=== PATIENT | male | born 1985 | race Caucasian/White ===

== ENCOUNTER 2019-06-10 14:36 | Emergency (ER) | payer OTHER, SELFPAY ==
[2019-06-10 14:46] VITALS: BP 133/79; PULSE 78; RESP 18; TEMP 37.4; O2SAT 100
--- NOTE | 2019-06-10 15:16 | ED.GENADULT ---
HPI - General Adult General Chief complaint: Upper Respiratory Infection Stated complaint: Congestion Time Seen by Provider: 06/10/19 15:16 Source: patient Mode of arrival: ambulatory Limitations: no limitations History of Present Illness HPI narrative: 34-year-old male patient presents to the [facility] with complaints of cold symptoms that started about 2 to 3 days ago. Patient states he has been feeling very weak, tired. Unknown if he has been having fevers. Patient states he has had a lot of cough, nasal drainage, congestion. Patient states he has been taking [id number] cold and sinus medication. Patient denies getting a flu shot this year. Patient denies any chest pain, shortness breath, abdominal pain, nausea, vomiting or diarrhea. Related Data Allergies Allergy/AdvReac Type Severity Reaction Status Date / Time No Known Allergies Allergy Verified 06/10/19 14:51 Review of Systems Review of Systems: Narrative: CONSTITUTIONAL: Positive subjective fever, chills, body exam sweats. EYES: Denies visual changes, redness, or discharge. ENT: Positive rhinorrhea, congestion, denies sore throat, or otalgia. CARDIOVASCULAR: Denies chest pain, palpitations, or edema. RESPIRATORY: Positive cough or dyspnea. GASTROINTESTINAL: Denies abdominal pain, nausea, vomiting, or diarrhea. GENITOURINARY: Denies dysuria or hematuria. SKIN: Denies rash or itching. MUSCULOSKELETAL: Denies back pain, joint pain, or myalgia. NEUROLOGIC: Denies headache, numbness, or weakness. PSYCHIATRIC: Denies anxiety or depression. [facility] Past Medical History Medical History Anxiety Social History Social History Smoking status: Current some day smoker Tobacco type: cigarettes Alcohol intake: current Substance use: never Gender identity (if verbalized by the patient): Male Comments At the time of my signature I agree with nursing past medical history, surgical, social, and family history. There is no relevant family history pertinent to the presenting complaint. Exam Narrative: Exam Narrative: GENERAL: ill-appearing, well-nourished, and in no acute distress. HEAD: Normocephalic, atraumatic. No tenderness noted to frontal maxillary sinuses on palpation EYES: PERRLA and EOMI. ENT: Nares with erythema and edema noted bilaterally, no rhinorrhea or epistaxis. Mucous membranes moist. Posterior pharynx with no erythema, tonsillar margin, exudates or lesions present. Bilateral TMs are clear with no erythema or foreign bodies in the canal. NECK: Supple. No lymphadenopathy CHEST: Clear to auscultation. No respiratory distress. HEART: Regular rate and rhythm. No murmur heard. Normal peripheral pulses. ABDOMEN: Soft, nontender, nondistended, normal active bowel sounds. EXTREMITIES: Normal range of motion. No edema. SKIN: Warm, dry, no rash. NEURO: No focal deficits. Alert and oriented x3. Course Vital Signs Vital signs: Vital Signs Temperature 37.4 C 06/10/19 14:46 Pulse Rate 78 06/10/19 14:46 Respiratory Rate 18 06/10/19 14:46 Blood Pressure 133/79 06/10/19 14:46 Pulse Oximetry 100 06/10/19 14:46 Temperature 37.4 C 06/10/19 14:46 Pulse Rate 78 06/10/19 14:46 Respiratory Rate 18 06/10/19 14:46 Blood Pressure 133/79 06/10/19 14:46 Pulse Oximetry 100 06/10/19 14:46 Vital signs reviewed. Medical Decision Making Differential Diagnosis Differential Diagnosis: Differential diagnosis: Allergic rhinitis, chronic sinusitis, tonsillitis, acute sinusitis, infectious mononucleosis, seasonal influenza, pertussis, diphtheria, meningococcal disease, viral syndrome, viral bronchitis, RSV. Discussed with patient today that his influenza test is negative however given his symptoms I do think he most likely does have influenza. Discussed with patient that the treatment is good to be [id number] Tylenol, Motrin
== END 2019-06-10 15:30 | disposition home or self-care (01) ==
PROVIDERS: Emergency Provider Nurse Practitioner Family; PCP Family Medicine
DX: J06.9 Acute upper respiratory infection, unspecified (principal); R05 Cough; F17.210 Nicotine dependence, cigarettes, uncomplicated
CPT/HCPCS: 87804; 99212; G0463

== ENCOUNTER 2019-06-17 15:58 | Emergency (ER) | payer OTHER, SELFPAY ==
--- NOTE | 2019-06-17 16:04 | ED.GENADULT ---
HPI - General Adult General Chief complaint: Upper Respiratory Infection Stated complaint: runny nose/cough/headache Time Seen by Provider: 06/17/19 16:27 Source: patient Mode of arrival: ambulatory Limitations: no limitations History of Present Illness HPI narrative: 34-year-old male patient presents to the [facility] with complaints of cold symptoms and a cough. Patient was seen here last week and had a flu swab done however this provider was confident that he probably did have the flu. Patient was taken off work for 7 days. Patient returns stating he has taken some [id number] medicine and that his fevers have gotten better but continues to have a cough does complain of shortness of breath at times. Patient has continued to smoke throughout his illness. Did not get a flu shot this year. Related Data Allergies Allergy/AdvReac Type Severity Reaction Status Date / Time No Known Allergies Allergy Verified 06/17/19 16:19 Review of Systems Review of Systems: Narrative: CONSTITUTIONAL: Denies fever, chills, or sweats. EYES: Denies visual changes, redness, or discharge. ENT: Denies rhinorrhea, congestion, sore throat, or otalgia. CARDIOVASCULAR: Denies chest pain, palpitations, or edema. RESPIRATORY: Positive cough with dyspnea. GASTROINTESTINAL: Denies abdominal pain, nausea, vomiting, or diarrhea. GENITOURINARY: Denies dysuria or hematuria. SKIN: Denies rash or itching. MUSCULOSKELETAL: Denies back pain, joint pain, or myalgia. NEUROLOGIC: Denies headache, numbness, or weakness. PSYCHIATRIC: Denies anxiety or depression. PMFSH Social History Social History Smoking status: Current some day smoker Tobacco type: cigarettes Alcohol intake: current Substance use: never Gender identity (if verbalized by the patient): Male Comments At the time of my signature I agree with nursing past medical history, surgical, social, and family history. There is no relevant family history pertinent to the presenting complaint. Exam Narrative: Exam Narrative: GENERAL: Well-appearing, well-nourished, and in no acute distress. HEAD: Normocephalic, atraumatic. EYES: PERRLA and EOMI. ENT: Nares clear, no rhinorrhea or epistaxis. Mucous membranes moist. Posterior pharynx with no erythema, tonsillar margin, exudates or lesions present. Bilateral TMs are clear with no erythema or foreign bodies in the canal. NECK: Supple. No lymphadenopathy CHEST: Patient does have some rhonchi and some expiratory wheezing noted to bilateral upper lower lobes on auscultation. No respiratory distress. Patient able to talk in clear complete sentences. No tripoding noted. HEART: Regular rate and rhythm. No murmur heard. Normal peripheral pulses. ABDOMEN: Soft, nontender, nondistended, normal active bowel sounds. EXTREMITIES: Normal range of motion. No edema. SKIN: Warm, dry, no rash. NEURO: No focal deficits. Alert and oriented x3. Course Reevaluation(s) Reevaluation #1: Reevaluated patient after his DuoNeb was completed. Patient states he is feeling better feels like he can take a bigger deeper breath after receiving the DuoNeb. Patient still has very slight inspiratory wheezing noted to bilateral lower lobes as well as the right upper lobe. There is no more rhonchi noted. Patient overall does sound improved. Discussed with patient the fact that he is not running any more fevers is reassuring. Discussed with patient most likely this is a bronchitis that he is obtaining from the virus that he had. Discussed with patient our plan of care is to discharge him home with an albuterol inhaler and oral steroids. I will give him 1 more day off of work to see how he feels and then he can go back to work on Thursday. Patient verbalized understanding denies any other questions or concerns at this time. Date: 06/17/19 Time: 17:09 Vital Signs Vital signs: Vital Signs Temperature 36.4 C 06/17/19 16:08 Pulse
[2019-06-17 16:08] VITALS: BP 111/76; PULSE 64; RESP 18; TEMP 36.4; O2SAT 100
[2019-06-17] MEDS: ALBUTEROL SULFATE NEB 2.5 MG/3 ML INH INHALATION (16:40)
[2019-06-17] MEDS: IPRATROPIUM BR 0.02% INH SOLN 0.5 MG/2.5 ML VIAL INHALATION (16:40)
== END 2019-06-17 17:18 | disposition home or self-care (01) ==
PROVIDERS: Emergency Provider Nurse Practitioner Family; PCP Family Medicine
DX: J20.9 Acute bronchitis, unspecified (principal); F17.210 Nicotine dependence, cigarettes, uncomplicated
CPT/HCPCS: 94640; 99213; G0463

== ENCOUNTER 2019-11-13 11:13 | Emergency (ER) | payer OTHER, SELFPAY ==
--- NOTE | ~2019-11-13 | XR_ITS ---
EXAMINATION: XR thoracic spine min 4V EXAM DATE: 11/13/2019 11:46 INDICATION: Initial encounter following injury, with pain of the thoracic spine. TECHNIQUE: Frontal and lateral projections of the thoracic spine as well as lateral swimmers projecti on of the upper thoracic spine for interpretation. There is no prior study for comparison. FINDINGS: The vertebral bodies are aligned in the AP dimension. Vertebral body and disc heights are well-maintained. There are no acute fractures identified. Paraspinal soft tissue is unremarkable. IMPRESSION: Unremarkable thoracic exam. Reviewed, dictated and finalized at location A. IMPRESSION: Unremarkable thoracic exam.
--- NOTE | ~2019-11-13 | CT_ITS ---
EXAMINATION: CT brain wo con, CT cervical spine wo con EXAM DATE: 11/13/2019 11:56 INDICATION: Head injury. TECHNIQUE: Spiral CT of the head was performed without contrast. Axial, coronal and sagittal images were reviewed. Spiral CT of the cervical spine was performed without contrast. Axial images were rev iewed. Coronal and sagittal reformatted images were also reviewed. The dose-length product (DLP) fo r this examination was 605.33 (accession [id number]), 401.45 (accession [id number]) mGy-cm. The exposure was tailored according to patient size, and iterative reconstruction (ASIR) was used as additional dose reduction technique. There is no prior study for comparison. No FINDINGS: HEAD CT: There is no acute intraparenchymal hemorrhage. No evidence of intraparenchymal brain mass l esion. No evidence of acute infarction. There is no mass effect or midline shift. There is no obstru ctive hydrocephalus suspected. There are no extra-axial collections. There are no acute calvarial f ractures. The orbits are unremarkable. Soft tissue is unremarkable. The visualized sinuses and mas toid air cells are well aerated. CERVICAL CT: There is no evidence of acute cervical fracture. The odontoid process is intact. Pre- dens space is normal. Prevertebral soft tissue is normal. There are no soft tissue abnormalities id entified. There is no disc space widening or traumatic vertebral body subluxation suspected. Verteb ral body and disc heights are well-maintained. A detailed level by level evaluation of spondylosis can be added as addendum if requested. IMPRESSION: 1. No acute intracranial findings or cervical fracture. Reviewed, dictated and finalized at location A. IMPRESSION: 1. No acute intracranial findings or cervical fracture.
--- NOTE | ~2019-11-13 | XR_ITS ---
EXAMINATION: XR foot LT min 3V EXAM DATE: 11/13/2019 11:45 INDICATION: Initial encounter following injury, with pain of the left foot, toe, nail biting his blee ding. TECHNIQUE: Left foot dorsoplantar, lateral and oblique projections obtained and reviewed. There is n o prior study for comparison. FINDINGS: Left metatarsal bones unremarkable. There are no acute fractures or dislocations identifi ed. There is no subcutaneous gas. The soft tissue is unremarkable. There are no radiopaque foreig n bodies. IMPRESSION: 1. Unremarkable left foot exam. Reviewed, dictated and finalized at location A.
[2019-11-13 11:31] VITALS: BP 137/80; PULSE 75; RESP 18; TEMP 36.9; O2SAT 100
--- NOTE | 2019-11-13 12:37 | ED.HEATRA ---
HPI - Head Injury General Chief complaint: Head Injury Stated complaint: head injury Time Seen by Provider: 11/13/19 11:20 Source: patient Mode of arrival: ambulatory Limitations: no limitations History of Present Illness HPI Narrative: Patient presents for chief complaint of headache, neck, mid back, left toe after having an incident at work where he states claims multiple sheets of glass hit him in the frontal right aspect of his head pushing him back and causing him to hit the posterior right side of his head on a box. Patient states he also hit his thoracic area coming down as well as his left great toe. Patient denies any loss of consciousness. Patient states he had a moment of nausea. Patient states he is continued to have some headache and a clicking sensation in his right ear. Patient denies acute changes to vision, bleeding from any of his orifices or any other symptoms. Related Data Allergies Allergy/AdvReac Type Severity Reaction Status Date / Time No Known Allergies Allergy Verified 11/13/19 12:35 Review of Systems Review of Systems: Narrative: CONSTITUTIONAL: Denies fever, chills, or sweats. EYES: Denies visual changes, redness, or discharge. ENT: Reports clicking sensation to right ear denies rhinorrhea, congestion, sore throat CARDIOVASCULAR: Denies chest pain, palpitations, or edema. RESPIRATORY: Denies cough or dyspnea. GASTROINTESTINAL: Denies abdominal pain, nausea, vomiting, or diarrhea. GENITOURINARY: Denies dysuria or hematuria. SKIN: Denies rash or itching. MUSCULOSKELETAL: Reports back pain, left great toe pain denies joint pain, or myalgia. NEUROLOGIC: Reports headache, denies numbness, dizziness, or weakness. PSYCHIATRIC: Denies anxiety or depression. [facility] Social History Social History Smoking status: Current some day smoker Tobacco type: cigarettes Alcohol intake: current Substance use: never Gender identity (if verbalized by the patient): Male Exam Narrative: Exam Narrative: GENERAL: Well-appearing, well-nourished, and in no acute distress. HEAD: Mild swelling to the posterior aspect of head. No abrasions noted or lacerations. No scalp divet palpated. EYES: PERRLA and EOMI. ENT: Nares clear, no rhinorrhea or epistaxis. Mucous membranes moist. Oropharynx without tonsillar hypertrophy exudate or other lesions. Bilateral TMs pearly waller clear serious fluid noted behind right TM with mild bulging NECK: Supple. No adenopathy or masses. Mild tenderness to right aspect of neck. Patient was not in C collar when I entered the room and was moving neck prior to ccollar placement w/o issue. CHEST: Clear to auscultation. No respiratory distress. No wheezes rales or rhonchi HEART: Regular rate and rhythm. Normal peripheral pulses. ABDOMEN: Soft, nontender, nondistended. BACK: No outward signs of trauma. No abrasions or erythema noted. Range of motion intact. Tenderness to palpation to lateral aspect of right thoracic area diffusely. EXTREMITIES: Normal range of motion. Swelling to the lateral aspect of left nail bed with minimal bleeding. SKIN: Warm, dry, no rash. NEURO: No focal deficits. Alert and oriented x3. PSYCH: Normal mood and affect. Course Vital Signs Vital signs: Vital Signs Temperature 98.5 F 11/13/19 11:31 Pulse Rate 75 11/13/19 11:31 Respiratory Rate 18 11/13/19 11:31 Blood Pressure 137/80 11/13/19 11:31 Pulse Oximetry 100 11/13/19 11:31 Temperature 98.2 F 11/13/19 13:12 Pulse Rate 56 L 11/13/19 13:12 Respiratory Rate 18 11/13/19 13:12 Blood Pressure 136/101 H 11/13/19 13:12 Pulse Oximetry 100 11/13/19 13:12 MDM - Head Injury MDM Narrative Medical decision making narrative: Patient has noted improvement in head discomfort without medicinal intervention. Patient is not having any neurological deficits. Patient's imaging is negative. Patient encouraged to rest take Tylenol or Motrin f
[2019-11-13 13:12] VITALS: BP 136/101; PULSE 56; RESP 18; TEMP 36.8; O2SAT 100
== END 2019-11-13 13:14 | disposition home or self-care (01) ==
PROVIDERS: Emergency Provider Emergency Medicine; PCP Family Medicine
DX: S09.90XA Unspecified injury of head, initial encounter (principal); S20.222A Contusion of left back wall of thorax, initial encounter; S90.935A Unspecified superficial injury of left lesser toe(s), initial encounter; W20.8XXA Other cause of strike by thrown, projected or falling object, initial encounter
CPT/HCPCS: 70450; 72074; 72125; 73630; 99284; L0140

== ENCOUNTER 2022-04-09 19:27 | Emergency (ER) | payer OTHER, SELFPAY ==
--- NOTE | 2022-04-09 19:28 | ED.URI ---
HPI - URI/Sore Throat General Chief Complaint: Upper Respiratory Infection Stated Complaint: flu sx Time Seen by Provider: 04/09/22 19:28 Source: patient Mode of arrival: ambulatory Limitations: no limitations History of Present Illness HPI Narrative: Mr. Marroquin is a 36-year-old male patient presenting to clinic today with complaints of flu-like symptoms. He reports he is having bilateral ear pain with loss of hearing, cough, and congestion. Reports that the symptoms started on the 12th. He denies any recent fever. MD elicited complaint: sore throat and nasal congestion Related Data Allergies Allergy/AdvReac Type Severity Reaction Status Date / Time No Known Allergies Allergy Verified 04/09/22 19:36 Review of Systems Review of Systems: Pertinent positives per HPI. Patient denies any fever, chills, rash, headache, visual changes, dizziness, shortness of breath, chest pain, palpitations, nausea, vomiting, diarrhea, constipation, abdominal pain, or any urinary issues. [facility] Past Medical History Medical History (Updated 04/09/22 @ 19:42 by Salvador Obrien APRN) Anxiety Social History Social History Smoking status: Current some day smoker Tobacco type: cigarettes Alcohol intake: current Alcohol use details: Socially Substance use: never Gender identity (if verbalized by the patient): Male Comments At the time of my signature, I reviewed and agree with the nursing past medical, surgical, social, and family history. There is no relevant family history pertinent to the patient complaint. Exam Narrative: General: Well-developed, well nourished, in no apparent distress Head: Normocephalic, atraumatic Eyes: Pupils equally round and reactive to light bilaterally, EOM intact, sclera and conjunctive clear, no discharge, lids normal Ears: TMs intact and clear, ear canals clear, no drainage, grossly hearing normal. Nose: Nares patent, clear nasal discharge, no inflammation, no sinus tenderness. Mouth: Oral pharynx without lesions or masses, good dentition, MMM. postnasal drip Neck: Supple, trachea midline, no enlargement of anterior or posterior cervical nodes, no thyroid masses or goiter palpable. Cardio: Regular rate and rhythm, s1 and s2 normal, no murmur appreciated. Resp: Expiratory wheezing throughout lung zelaya, no rhonchi, rales, or rubs Course Course Emergency Course: Portions of this record may have been created with voice recognition software. Level of Care: Express Care Visit Vital Signs Vital signs: Vital signs reviewed MDM - URI/Sore Throat MDM Narrative Medical decision making narrative: At the time of visit patient is resting comfortably on the exam table. I suspect patient has otitis media and bronchitis. Will send a prescription for prednisone, Augmentin, and albuterol inhaler. Supportive measures were discussed with the patient he voiced understanding of discharge instructions and agrees to treatment plan. Differential Diagnosis Differential diagnosis: Likely upper respiratory infection, otitis media, sinusitis, viral infection, bronchitis, influenza, pharyngitis and other ( COVID) Discharge Plan Discharge Clinical Impression: Bronchitis Otitis media Qualifiers: Otitis media type: suppurative Chronicity: acute Laterality: bilateral Recurrence: non-recurrent Spontaneous tympanic membrane rupture: without spontaneous rupture Qualified Code(s): H66.003 - Acute suppurative otitis media without spontaneous rupture of ear drum, bilateral Patient Disposition: Home, Self-Care Condition: Stable Instructions: Antibiotic Form, Ear Infection (ED), Acute Bronchitis (ED) Additional Instructions: Take prescription medications only as prescribed- prednisone, Augmentin, and albuterol inhaler Increase fluids and stay well hydrated Tylenol/motrin for pain/fever Flonase and OTC antihistamines as dir
[2022-04-09 19:34] VITALS: BP 145/94; PULSE 82; RESP 18; TEMP 37.2; O2SAT 99
== END 2022-04-09 19:47 | disposition home or self-care (01) ==
LOC: EXPCOLL 19:31
PROVIDERS: Emergency Provider Nurse Practitioner Family; PCP Family Medicine
DX: J40 Bronchitis, not specified as acute or chronic (principal); H66.003 Acute suppurative otitis media without spontaneous rupture of ear drum, bilateral; F17.210 Nicotine dependence, cigarettes, uncomplicated
CPT/HCPCS: 99213; G0463

== ENCOUNTER 2023-10-01 18:58 | Emergency (ER) | payer MEDICAID, SELFPAY ==
--- NOTE | 2023-10-01 19:04 | ED.SKABFB ---
HPI - Skin/Abscess/Foreign Bdy General Chief complaint: Wound/Laceration Stated complaint: spider bite behind left knee Time Seen by Provider: 10/01/23 19:20 Source: patient, RN notes reviewed and old records reviewed Mode of arrival: ambulatory Limitations: no limitations History of Present Illness HPI narrative: 38-year-old male presents to the [facility] with a spider bite to the posterior knee since Thursday. Has been washing it with warm soapy water. Reports some discomfort. Related Data Allergies Allergy/AdvReac Type Severity Reaction Status Date / Time No Known Allergies Allergy Verified 10/01/23 19:18 Review of Systems Review of Systems: All systems reviewed & are unremarkable except as noted in HPI and below Constitutional: Constitutional: Reports no additional constitutional complaints Eyes: Eyes: Reports no additional eye complaints ENT: Reports system reviewed and no additional complaints, except as documented Cardiovascular: Cardiovascular: Reports no additional cardiovascular complaints, Denies chest pain and Denies dyspnea Respiratory: Respiratory: Reports no additional respiratory complaints, Denies chest congestion, Denies cough and Denies dyspnea Gastrointestinal: Gastrointestinal: Reports no additional gastrointestinal complaints, Denies abdominal pain, Denies nausea and Denies vomiting Musculoskeletal: Musculoskeletal: Reports no additional musculoskeletal complaints Integumentary/Breasts: Skin/Breast: Reports as per HPI Neurologic: Reports system reviewed and no additional complaints, except as documented Psychiatric: Psychiatric: Reports no additional psychiatric complaints Allergic/Immunologic: Allergic/Immunologic: Reports no additional allergic/immunologic complaints PMFSH Past Medical History Medical History Anxiety Social History Social History Smoking status: Current some day smoker Tobacco type: cigarettes Alcohol intake: current Alcohol use details: Socially Substance use: never Gender identity (if verbalized by the patient): Male Comments At the time of my signature, I reviewed and agree with the nursing past medical, surgical, social, and family history. There is no relevant family history pertinent to the patient complaint. Exam Const: General: cooperative, healthy appearing, comfortable, no acute distress, well developed, alert and well nourished Nutritional Appearance: well nourished Orientation/consciousness: patient oriented x3 Limitations: no limitations HENMT: Head: normal to inspection Ears: hearing grossly normal bilaterally and external ears normal Face/Nose/Sinus: Normal external nose present, Normal nares present, Normal nasal mucous membranes and turbinates present, normal facial exam and face symmetric Face and sinus: normal facial exam and face symmetric Eyes: General: appearance normal, both eyes and all related structures Alignment and Position: alignment normal Periorbital: periorbital findings normal Pupils: Equal, round and reactive pupils present EOM: EOMs intact bilaterally Neck: Neck: normal visual inspection, full ROM, no lymphadenopathy and no meningeal signs Chest: Chest palpation & inspection: normal inspection of the chest Resp: Effort & Inspection: normal respiratory effort and able to speak in complete sentences Cardio: Rate: regular rate Skin: General skin exam: normal color and no rashes or lesions noted Rashes: no rashes Trauma: no lacerations or abrasions Wounds: no wounds Other: Left posterior knee, scabed Center, dark in color 0.5 cm, mild erythema 1.5 cm diameter, no swelling, no fluctuance, no increased warmth Neuro: General: patient oriented x3, gait normal, tone normal, moves all extremities and no meningeal signs Cranial nerves: Yes Equal, round and reactive pupils present Cognition (Neuro): denita
[2023-10-01 19:11] VITALS: BP 139/86; PULSE 86; RESP 16; TEMP 36.6; O2SAT 99
== END 2023-10-01 19:40 | disposition home or self-care (01) ==
PROVIDERS: Emergency Provider Nurse Practitioner
DX: S80.262A Insect bite (nonvenomous), left knee, initial encounter (principal); W57.XXXA Bitten or stung by nonvenomous insect and other nonvenomous arthropods, initial encounter; F17.210 Nicotine dependence, cigarettes, uncomplicated
CPT/HCPCS: 99213; G0463

== ENCOUNTER 2024-03-12 00:36 | Emergency (ER) | payer SELFPAY ==
--- NOTE | ~2024-03-12 | CT_ITS ---
EXAMINATION: CT abdomen pelvis w con DATE: 03/12/2024 01:59 INDICATION: Abdominal pain, diarrhea, rectal bleeding TECHNIQUE: Computed tomography (CT) of the abdomen and pelvis was performed with 100 CC Omnipaque 350 intravenous contrast. Automated exposure control and iterative reconstruction technique were employe d. Exam dose: 1185.92 mGy-cm total exam DLP. COMPARISON: 09/10/2017 CT abdomen pelvis FINDINGS: The lung bases are clear. Normal heart size. No pericardial or pleural effusion. Right and posterior chest wall asymmetry with diminished subcutaneous fat. The liver, gallbladder, bile ducts, pancreas, pancreatic duct, spleen, and adrenal glands and kidneys are unremarkable other than approximately 7.3 mm right renal cyst. No urinary tract calculus or hydroureteronephrosis. The urinary bladder, prostate gland and seminal v esicles are unremarkable. Normal caliber of the abdominal aorta. No intraperitoneal or retroperitoneal or pelvic mass lesion or adenopathy or ascites. Normal appendix. No bowel obstruction or intraperitoneal free air. The colon is relatively evacuated except for the cecum and ascending colon. There is mild colon wall thickening from the hepatic flexur e through the rectum. Again noted are bilateral fat-containing inguinal hernias. Small fat-containing umbilical hernia. IMPRESSION: Possible proctocolitis from hepatic flexure to rectum show no bowel obstruction or free air Normal appendix 7.3 mm right renal cyst Bilateral fat-containing inguinal hernias Reviewed, dictated and finalized at [facility] Reviewed, dictated and finalized at [facility]. IRATORY CARE SPECIALIST IMPRESSION: Possible proctocolitis from hepatic flexure to rectum show no max l obstruction or free air Normal appendix 7.3 mm right renal cyst Bilateral fat-containing inguinal hernias
[2024-03-12] MEDS: ONDANSETRON INJ 4 MG/2 ML VIAL IV PUSH (00:59)
[2024-03-12] MEDS: DICYCLOMINE HCL INJ 20 MG/2 ML VIAL IM (00:59)
[2024-03-12] MEDS: SODIUM CHLORIDE 0.9% IV 1,000 ML 999 ML IV CONT ×2 (00:59→01:40)
[2024-03-12 01:03] LABS: Basophils Percent Auto 0.2 % (0.2-1.2); Eosinophils Absolute Auto 0.1 K/mm3 (0-0.3); Eosinophils Percent Auto 0.7 % (0-4.4); Hematocrit 45.4 % (42.0-52.0); Hemoglobin 15.8 g/dL (14.0-18.0); Immature Granulocyte Absolute 0.05 K/mm3 (0.00-0.031); Immature Granulocyte Percent A 0.6 % (0-0.5); Lymphocytes Absolute Auto 1.19 K/mm3 (0.9-3.2); Lymphocytes Percent Auto 13.3 % (18.3-44.2); Mean Corpuscular HGB Conc 34.8 g/dl (32-36); Mean Corpuscular Volume 89.2 fl (80-100); Mean Platelet Volume 10.1 fl (7.4-10.4); Monocytes Absolute Auto 0.4 K/mm3 (0.1-0.6); Monocytes Percent Auto 4.6 % (2.6-8.5); Neutrophils Absolute Auto 7.2 K/mm3 (1.3-6.7); Neutrophils Percent Auto 80.6 % (45.5-73.1); Platelet Count Result 240 k/mm3 (150-375); Red Blood Count 5.09 M/mm3 (4.6-6.20); Red Cell Distribution Width 12.2 % (11.5-14.5); White Blood Count 8.9 K/mm3 (4.5-10.0)
[2024-03-12 01:19] LABS: Alanine Aminotransferase 25 U/L (6-50); Albumin Level 4.5 g/dL (3.5-5.1); Alkaline Phosphatase 69 U/L (38-126); Anion Gap 8 mmol/L (4-12); Aspartate Amino Transferase 23 U/L (17-59); Bilirubin,Total 0.5 mg/dL (0.2-1.3); Blood Urea Nitrogen 10 mg/dL (9-20); Calcium 9.1 mg/dL (8.4-10.2); Carbon Dioxide 28 mmol/L (22-30); Chloride 104 mmol/L (98-107); Estimated CRCL calculation 111 ml/min; Estimated Glomerular Filt Rate > 60; Glucose 157 mg/dL (65-110); Lipase 116 U/L (23-300); Potassium 4.3 mmol/L (3.4-5.0); Sodium 140 mmol/L (137-145)
[2024-03-12 01:20] LABS: Lactic Acid Reflex 3.5 mmol/L (0.7-2.0)
--- NOTE | 2024-03-12 01:39 | ED.GENADULT ---
HPI - General Adult General Chief complaint: GI Bleed Stated complaint: bleeding from the rectum Time Seen by Provider: 03/12/24 00:43 History of Present Illness HPI narrative: patient 38-year-old gentleman who presents emergency department chief complaint of abdominal pain diarrhea and blood in the stool patient states he is worried he may have colitis or other intra-abdominal issues Related Data Allergies Allergy/AdvReac Type Severity Reaction Status Date / Time No Known Allergies Allergy Verified 10/01/23 19:18 Review of Systems Review of Systems: A 10 system review of systems was completed on the patient and is negative except for what is stated in the HPI. Nursing and ancillary documentation was reviewed. [facility] Past Medical History Medical History (Updated 03/12/24 @ 03:32 by Leon Kline MD) Anxiety Social History Social History Smoking status: Current some day smoker Tobacco type: cigarettes Alcohol intake: current Alcohol use details: Socially Substance use: never Gender identity (if verbalized by the patient): Male Exam Narrative: GENERAL: Well-appearing, well-nourished, and in no acute distress. HEAD: Normocephalic, atraumatic. EYES: PERRLA and EOMI. ENT: Nares clear, no rhinorrhea or epistaxis. Mucous membranes moist. NECK: Supple. CHEST: Clear to auscultation. No respiratory distress. HEART: Regular rate and rhythm. No murmur heard. Normal peripheral pulses. ABDOMEN: Soft, diffuse tenderness to palpation, nondistended, normal active bowel sounds. : Guaiac-negative stool EXTREMITIES: Normal range of motion. No edema. SKIN: Warm, dry, no rash. NEURO: No focal deficits. Alert and oriented x3. PSYCH: Normal mood and affect. Course Vital Signs Vital signs: Vital Signs Temperature 36.8 C 03/12/24 02:53 Pulse Rate 61 03/12/24 02:53 Respiratory Rate 12 03/12/24 02:53 Blood Pressure 152/92 H 03/12/24 02:53 Pulse Oximetry 98 03/12/24 02:53 Temperature 36.8 C 03/12/24 02:53 Pulse Rate 61 03/12/24 02:53 Respiratory Rate 12 03/12/24 02:53 Blood Pressure 152/92 H 03/12/24 02:53 Pulse Oximetry 98 03/12/24 02:53 Medical Decision Making [facility] Narrative Medical decision making narrative: differential diagnosis of colitis, diverticulitis, intra-abdominal infection patient was black negative laboratory studies were obtained the patient white count 8.9 lactic acid was slightly elevated at 3.5 patient received IV fluids in the emergency department CT scan of the abdomen pelvis showed evidence of colitis the patient was started on Cipro and Flagyl Vital Signs Vital Signs: Vital Signs Temperature 36.8 C 03/12/24 02:53 Pulse Rate 61 03/12/24 02:53 Respiratory Rate 12 03/12/24 02:53 Blood Pressure 152/92 H 03/12/24 02:53 Pulse Oximetry 98 03/12/24 02:53 Temperature 36.8 C 03/12/24 02:53 Pulse Rate 61 03/12/24 02:53 Respiratory Rate 12 03/12/24 02:53 Blood Pressure 152/92 H 03/12/24 02:53 Pulse Oximetry 98 03/12/24 02:53 Lab Data 03/12/24 00:56 03/12/24 00:56 Labs: Lab Results 03/12/24 03/12/24 Range/Units 00:56 02:52 WBC 8.9 (4.5-10.0) K/mm3 RBC 5.09 (4.6-6.20) M/mm3 Hgb 15.8 (14.0-18.0) g/dL Hct 45.4 (42.0-52.0) % MCV 89.2 (80-100) fl MCH 31.0 (26-34) pg MCHC 34.8 (32-36) g/dl RDW 12.2 (11.5-14.5) % Plt Count 240 (150-375) k/mm3 MPV 10.1 (7.4-10.4) fl Immature Gran % (Auto) 0.6 H (0-0.5) % Neut % (Auto) 80.6 H (45.5-73.1) % Lymph % (Auto) 13.3 L (18.3-44.2) % [place] % (Auto) 4.6 (2.6-8.5) % Eos % (Auto) 0.7 (0-4.4) % Baso % (Auto) 0.2 (0.2-1.2) % Lymph # (Auto) 1.19 (0.9-3.2) K/mm3 [place] # (Auto) 0.4 (0.1-0.6) K/mm3 Eos # (Auto) 0.1 (0-0.3) K/mm3 Baso # (Auto) 0.0 (0.0-0.1) K/mm3 Abs Immat Gran (auto) 0.05 H (0.00-0.031) K/mm3 Absolute Neuts (auto) 7.2 H (1.3-6.7) K/mm3 Absolute Nucleated RBC 0.000 (0.0-0.012) K/mm3 Nucleated RBC % 0.0 (0.0-0.2) % Sodium 140 (137-145) mmol/L Potassium 4.3 (3.4-5.0) mmol/L Chloride 104 (98-107) mmol/L Carbon Dioxide 28 (22-30) mmol/L Anion Gap 8 (4-12) mmol/L BUN 10 (9-20) mg/dL Creatinine 1.00 (0.7-1.3) mg/dL Estim Creat Clear Calc 111 ml/min Estimated GFR > 60 (59 - ) Glucose 157 H (65-110) mg/dL Lactic Acid 3.5 H (0.7-2.0) mmol/L Calcium 9.1 (8.4-10.2) mg/dL Total Bilirubin 0.5 (0.2-1.3) mg/dL AST 23 (17-59) U/L ALT 25 (6-50) U/L Alkaline Phosphatase 69 (38-126) U/L Total Protein 8.0 (6.3-8.2) g/dL Albumin 4.5 (3.5-5.1) g/dL Lipase 116 (23-300) U/L Urine Color Yellow (Yellow) Urine Appearance Clear (Clear) Urine pH 5.0 (5.0-9.0) Ur Specific Bruner > 1.045 H (1.001-1.035) Urine Protein Negative (Negative) mg/dL Urine Glucose (UA) Negative (Negative) mg/dL Urine Ketones Negative (Negative) mg/dL Ur Blood (Man) Negative (Negative) Urine Nitrate Negative (Negative) Urine Bilirubin Negative (Negative) Urine Urobilinogen 0.2 (<2.0) mg/dL Leukocyte Esterase Rfl Negative (Negative) PAULETTE/UL Discharge Plan Discharge Clinical Impression: Colitis Patient Disposition: Home, Self-Care Condition: Stable Instructions: Antibiotic Form, Colitis (ED) Prescriptions: New ciprofloxacin HCl 500 mg tablet 500 mg PO Q12H 10 Days Qty: 20 0RF metronidazole 500 mg tablet 500 mg PO Q8H 10 Days Qty: 30 0RF No Action cephalexin 500 mg capsule 500 mg PO Q8H 7 Days Qty: 21 0RF Follow-up/Referrals: PHYSICIAN,DISTRICT ADVISER [Primary Care Provider] - Raj Delatorre MD [Physician] - Time of Disposition: 03:35
[2024-03-12 02:53] VITALS: BP 152/92; PULSE 61; RESP 12; TEMP 36.8; O2SAT 98
--- NOTE | 2024-03-12 02:57 | PC.NURSE ---
urine sent at this time. patient vitals obtained. patient appears flushed.
[2024-03-12 03:00] LABS: Add Urine Microscopic? NO; Appearance Urine Clear (Clear); Bilirubin Urine Negative (Negative); Blood Urine Negative (Negative); Color Urine Yellow (Yellow); Glucose Urine UA Negative (Negative); Ketones Urine Negative (Negative); Leukocyte Esterase Ur Negative LEU/UL (Negative); Nitrate Urine Negative (Negative); Protein Urine Negative (Negative); Specific Grav Ur > 1.045 (1.001-1.035); Urobilinogen Urine 0.2 mg/dL (<2.0)
[2024-03-12] MEDS: CIPROFLOXACIN 500 MG TAB PO (03:47)
[2024-03-12] MEDS: metroNIDAZOLE 500 MG TABLET PO (03:47)
[2024-03-12 03:59] LABS: Reflex Lactic Acid Yes or No Add Lactic
== END 2024-03-12 03:59 | disposition home or self-care (01) ==
PROVIDERS: Emergency Provider Emergency Medicine
DX: K52.9 Noninfective gastroenteritis and colitis, unspecified (principal); F17.210 Nicotine dependence, cigarettes, uncomplicated
CPT/HCPCS: 36415; 74177; 80053; 81003; 83605; 83690; 85025; 96361; 96372; 96374; 99284; A9270; J0500; J2405; J7030; Q9967

== ENCOUNTER 2024-07-25 00:15 | Day surgery (SDC) | payer OTHER, SELFPAY ==
[2024-07-19 14:00] VITALS: BMI 32.5
--- OUTSIDE RECORDS SUMMARY | 2024-07-25 00:17 | XMS_ITS | Encounter Summary ---
Author Organization [facility] Address [address] [place] [address] Care Team Providers Care Watchstander Name Role Phone Unavailable Primary Care Provider Unavailabl e Encounter Details Date Type Department Care Team (Late st Contact Info) Description 07/06/2019 Digital Self COVID-1 9 Monitoring [facility] ABSTRACTION Provider, Abstract NO ADDRESS ON FILE Social History Tobacco Use Types Packs/Day Years Used Date Smoking Tobacco: Never Assessed Sex and Gender Information Value Date Recorded Sex Assigned at Not on file Legal Sex Male 1:59 PM CDT Gender Identity Not on file Sexual Orientation Not on file COVID-19 Exposure Response Date Recorded In the last month, have you been in contact with someone who was confirmed or suspected to have Coronavirus / COVID-19? Yes 06/28/2019 1:54 PM CDT documented as of this encounter Plan of Treatment Not on file documented as of this encounter Visit Diagnoses Not on filedocumented in this encounter Additional Health Concerns Infection Onset Date Last Indicated Resolved Time R/O COVID-19 06/28/2019 06/28/2019 07/08/2019 7:40 PM CDT documented as of this encounter
--- OUTSIDE RECORDS SUMMARY | 2024-07-25 00:17 | XMS_ITS | Encounter Summary ---
Author Organization [facility] Address [address] [place] [address] Care Team Providers Care Sld Teacher Name Role Phone Unavailable Primary Care Provider Unavailabl e Encounter Details Date Type Department Care Team (Late st Contact Info) Description 07/07/2019 Digital Self COVID-1 9 Monitoring STL ABSTRACTION [...]
--- OUTSIDE RECORDS SUMMARY | 2024-07-25 00:17 | XMS_ITS | Encounter Summary ---
Author Organization [facility] Address [address] [place] [address] Care Team Providers Care Instantizer Operator Name Role Phone Unavailable Primary Care Provider Unavailabl e Encounter Details Date Type Department Care Team (Late st Contact Info) Description 07/08/2019 Digital Self COVID-1 9 Monitoring ST[place] ABSTRACTION [...]
--- OUTSIDE RECORDS SUMMARY | 2024-07-25 00:17 | XMS_ITS | Encounter Summary ---
Author Organization [employer] Address [address] [place] [address] Care Team Providers Care Director Power Name Role Phone Unavailable Primary Care Provider Unavailabl e Encounter Details Date Type Department Care Team (Late st Contact Info) Description 07/05/2019 Digital Self COVID-1 9 Monitoring STL ABSTRACTION [...]
--- OUTSIDE RECORDS SUMMARY | 2024-07-25 00:17 | XMS_ITS | Encounter Summary ---
Author Organization [facility] Address [address] [place] [address] Care Team Providers Care Seat Builder Name Role Phone Unavailable Primary Care Provider [...]
--- OUTSIDE RECORDS SUMMARY | 2024-07-25 00:17 | XMS_ITS | Encounter Summary ---
Author Organization [facility] Address [address] [place] [address] Care Team Providers Care Satellite Television Installer Name Role Phone Unavailable Primary Care Provider [...]
--- OUTSIDE RECORDS SUMMARY | 2024-07-25 00:17 | XMS_ITS | Clinical Summary ---
Author Organization [employer] [facility] Address [address] [place] [address] Care Team Providers Care Sports Marketing Specialist Name Role Phone Unavailable Primary Care Provider Unavailabl e Social History Tobacco Use Types Packs/Day Years Used Date Smoking Tobacco: Never Assessed Sex and Gender Information Value Date Recorded Sex Assigned at Not on file Legal Sex Male 1:59 PM CDT Gender Identity Not on file Sexual Orientation Not on file Plan of Treatment Health Maintenance Due Date Last Done Comments DTAP/TDAP/TD VACCINES (1 - Tdap) 2004 HEPATITIS B VACCINES (1 of 3 - 19+ 3-dose series) 2004 INFLUENZA VACCINE (#1) 2023 HPV VACCINES Aged Out No longer eligi ble based on patient's age to complete this topic PNEUMOCOCCAL VACCINE 0-49 YEARS Aged Out No longer eligible based on patient's age to complete this topic Insurance [facility] MEDICAID
--- OUTSIDE RECORDS SUMMARY | 2024-07-25 00:17 | XMS_ITS | Data Portability ---
Author Organization [facility] Address [address] [address] Care Team Providers Care Administrator Name Role Phone KELSEY OROZCO Primary Care Provider Assessment No assessment recorded. Plan of Treatment Reminders Order Date Submit Date Provider Last Modified By Organization Details Last Modified Time Details Appointments None record ed. Lab None record ed. Referral None record ed. Procedures None record ed. Surgeries None record ed. Imaging None record ed. Medication Orders None record ed. Patient TargetsNo targets recorded. Patient Instructions Encounter Date Encounter Id Patient Instructions Last Modified By Organization Details Last Modified Time 04/12/2019 [id number] - stop smoking -go to tentist - go to ER - f/u as needed/ call with question [email or web address] Not available 04/12/2019 13:47:45 Reason for Referral None Reported. Problems No Known Problems Medical Equipment None Reported. Allergies No known drug allergies Medications Name Sig Start Date Stop Date Status Note LastModified by Organization Details LastModified Time ibuprofen 800 mg tablet active Not Available Not Available No t Available buspirone 7.5 mg tablet 2018 completed Not Available Not Available Not Available amoxicillin 875 mg-potassium clavulanate 125 mg tablet 2018 completed Not Available Not Available Not Available Vitals Date Recorded Body height Body mass index (BMI) Body weight Body temperature Heart rate Oxygen saturation Oxygen saturation in Arterial blood by Pulse oximetry Systolic blood pressure Diastolic blood pressure Provider Name and Address Organization Details Last Updated DateTime 9 180.34 cm 26.8 kg/m2 16506.5 4 g 98.3 [degF] 72 /min 97 % 97 % 130 mm[Hg] 78 mm[Hg] Crystal Nava [facility] SI 9 10:51:07 Social History Question Answer Notes LastModified by Organizat ion Details LastModified Time Tobacco Smoking Status Current Every Day Smoker Crystal Nava [place], [place] - [facility] 04/12/2019 10:53:36 Do You Or Have You Ever Used E-cigarettes Or Vape? Never Used Electronic Cigarettes Information not available 04/12/2019 What Was The Date Of Your Most Recent Tobacco Screening? 04/12/2019 Information not available 04/12/2019 Do You Or Have You Ever Used Smokeless Tobacco? Never Used Smokeless Tobacco Information not available 04/12/2019 On What Date Was Tobacco Cessation Counseling Provided? 04/12/2019 Information not available 04/12/2019 How Many Years Have You Smoked Tobacco? 5 Information not available 04/12/2019 Sex: Unknown Functional Status None recorded. Mental Status None recorded. Family History Nothing Reported. Medical History Condition Response Coronary Artery Disease N Other N Atrial Fibrillation N High Blood Pressure N Depression N COPD N Blood Clots N Anxiety Disorder N Muscle, Joint, or Bone Problems N Acid Reflux (GERD) N Cancer N Stroke N Headaches N Kidney or Bladder Problems N Skin Problems N Asthma N Allergies N Hepatitis N High Cholesterol N Liver Disease N Thyroid Problems N GI Problems N Anemia N Heart Attack ([place]) N Diabetes N Seizures/Epilepsy N Heart Failure N Osteoporosis N Past Encounters Encounter ID Performer Location Encounter Start Date Encounter Closed Date Diagnosis/Indication Diagnosis SNOMED-CT Code Diagnosis ICD10 Code Diagnosis Note [id number] LEONEL PRITCHETT [facility] [address] [place] [address] 04/12/2019 10:04:44 04/12/2019 14:38:13 Infection of tooth 191709885 K04.7 patient advised to go to ER as jaw is tender and check is significan tly swollen. He may need xray to r/o bone infection as he has let this go for many months. F/U after completing abx. Patient agrees with plan. I gave patient numbers of dentist that take meridian. - stop smoking-go to dentist- go to ER- f/u as needed Health Concerns Section Related Observation LastModified by Organization Detai ls LastModified Time None Recorded Concern Status LastModified by Organization Details LastModified Time None Recorded Advance Directives Directive None Recorded Payers Encounter Date Sequence Insurance Name Policy Number Policy Harrison Covered Member ID Harrison Member ID Guarantor Name 04/12/2019 1 [facility] - DOS PRIOR TO 2020 (MEDICAID REPLACEMENT - HMO) Sanjay Broussard [id number] Sanjay Broussard Notes Date Note Type Note Provider Name and Address Organization Details Recorded Time 04/12/2019 text/html hortensia is a 33 YO M presenting for toothache patient thought we were a dentist. He had a tooth infection that popped up over night. He has been struggling off and on with this for the last year. He has primary care but may switch to here as he lives closer to this office. Patient smokes 1.5 cigars per day for a few years. denies cp, sob, edema, diarrhea, constipation, fevers LEONEL PRITCHETT Attn: [address] [place], [address], [place] - [facility] 04/12/2019 13:48:03
--- OUTSIDE RECORDS SUMMARY | 2024-07-25 00:17 | XMS_ITS | Encounter Summary ---
Author Organization [facility] Address [address] [place] [address] Care Team Providers Care Helicopter Crew Chief Name Role Phone Unavailable Primary Care Provider [...]
--- OUTSIDE RECORDS SUMMARY | 2024-07-25 00:17 | XMS_ITS | Encounter Summary ---
Author Organization [facility] Address [address] [place] [address] Care Team Providers Care Electro Plater Name Role Phone Unavailable Primary Care Provider [...]
[2024-07-25 11:59] VITALS: BP 146/108; PULSE 84; RESP 20; TEMP 36.5; O2SAT 100; BMI 32.2
--- NOTE | 2024-07-25 12:11 | P.PNAN_ITS ---
Anes - Initial Pre Proc Eval Procedure: Operation Date: 07/25/24 13:30 Proposed Procedures p Esophagogastroduodenoscopy & Colonoscopy - Lux Jama MD Date/Time: 07/25/24 12:11 Surgeon: Lux Jama MD Pre Op Diagnosis: GERD, Melena Patient Data Age: 39 Gender: M Height: 1.83 m Weight: 107.9 kg Last Vital Signs Temp 97.7 F 07/25/24 11:59 Pulse 84 07/25/24 11:59 Resp 20 07/25/24 11:59 BP 146/108 H 07/25/24 11:59 Pulse Ox 100 07/25/24 11:59 O2 Del Method Room Air 07/25/24 11:59 Allergies Allergy/AdvReac Type Severity Reaction Status Date / Time No Known Allergies Allergy Verified 07/25/24 11:59 Home Medications ?Medication ?Instructions ?Recorded ?Confirmed ?Type omeprazole 20 mg capsule,delayed 40 mg PO DAILY 07/19/24 07/25/24 History release Patient hx anesthesia problems: none Family hx anesthesia problems: none Results Review: All pre-operative results and documents have been reviewed as part of the pre- operative evaluation. [facility] Past Medical History Medical History (Updated 03/13/24 @ 00:00 by Barbara Worthy) Anxiety Social History Social History Smoking status: Never smoker Tobacco type: e-cigarettes/vaping Alcohol intake: never Alcohol use details: Socially Substance use: never Substance use type: does not use Living arrangements: with family Gender identity (if verbalized by the patient): Male Spiritual care concerns: No Anes - Eval Final PreProcedure Day of Procedure 07/25/24 12:11 Patient weight: obese Heart: regular rate and rhythm Lungs: clear to auscultation Airway: Mallampati scale class II Neurological: alert and oriented Last oral intake: >/= 8 hours ASA classification: II Emergent: no Anesthetic plan: proceed Anesthesia type and monitoring: general GIVS and standard monitoring Results Review: All pre-operative results and documents have been reviewed as part of the pre- operative evaluation. Informed Consent: The patient's anesthetic plan and its attendant risks and benefits were discussed with the patient/family/POA. Questions were solicited and answers provided to the satisfaction of the patient/family/POA.
[2024-07-25] MEDS: LACTATED RINGERS 1,000 ML 150 ML IV CONT (12:12)
[2024-07-25 12:13] VITALS: BP 137/96
--- NOTE | 2024-07-25 12:18 | PM.HPGS ---
History of Present Illness History of Present Illness Consent: Risks, benefits, and alternatives have been discussed and questions answered. Patient agrees to proceed with procedure. Chief complaint: GERD, Melena Narrative: Sanjay Broussard is a 39 year old male here for first egd/colonoscopy. Around Thanksgiving had blood in stool, he came to ER, CT scan showed possible proctocolitis. Also GERD, omeprazole is helping but sometimes with breakthrough Review of Systems Review of Systems: All systems reviewed & are unremarkable except as noted in HPI and below PMFSH Past Medical History Medical History (Updated 07/25/24 @ 12:19 by Lux Jama MD) Blood in stool GERD (gastroesophageal reflux disease) Anxiety Social History Social History Smoking status: Never smoker Tobacco type: e-cigarettes/vaping Alcohol intake: never Alcohol use details: Socially Substance use: never Substance use type: does not use Living arrangements: with family Gender identity (if verbalized by the patient): Male Spiritual care concerns: No Meds Home Medications and Allergies Home Medications ?Medication ?Instructions ?Recorded ?Confirmed ?Type omeprazole 20 mg capsule,delayed 40 mg PO DAILY 07/19/24 07/25/24 History release Allergies Allergy/AdvReac Type Severity Reaction Status Date / Time No Known Allergies Allergy Verified 07/25/24 11:59 Vital Signs Vital Signs - 24 hr 07/25/24 11:59 07/25/24 12:13 Temperature 97.7 F Pulse Rate 84 Respiratory Rate 20 Blood Pressure 146/108 H 137/96 H Pulse Oximetry 100 Oxygen Delivery Room Air Exam Const: General: comfortable and no acute distress HENMT: Face/Nose/Sinus: Normal nares present Eyes: General: appearance normal, both eyes and all related structures Neck: Neck: no JVD Resp: Auscultation: clear to auscultation bilaterally Cardio: Rate: regular rate Rhythm: regular rhythm GI: Inspection: non-distended GI Palp: Yes Soft to palpation Skin: General skin exam: normal color Neuro: General: gait normal Speech: normal speech Extrem: General: normal to inspection Psych: Mental Status: mental status grossly normal Assessment and Plan Assessment and plan (1) GERD (gastroesophageal reflux disease): Code(s): K21.9 - Gastro-esophageal reflux disease without esophagitis Status: Acute Assessment and Plan: egd with bx (2) Blood in stool: Code(s): K92.1 - Melena Status: Acute Assessment and Plan: colonoscopy
--- NOTE | 2024-07-25 12:35 | SUR.OPER ---
EGD [id number]. Colon start time 1233.
[2024-07-25 12:44] VITALS: BP 118/74; PULSE 69; RESP 15; O2SAT 97
[2024-07-25 12:54] VITALS: BP 123/83; PULSE 66; RESP 16; O2SAT 97
[2024-07-25 13:04] VITALS: BP 139/99; PULSE 67; RESP 18; O2SAT 99
== END 2024-07-25 13:14 | disposition home or self-care (01) ==
PROVIDERS: PCP Family Medicine; Visit Provider Internal Medicine Gastroenterology
PROC: 0DJ08ZZ Inspection of Upper Intestinal Tract, Via Natural or Artificial Opening Endoscopic (ICD-10-PCS; CPT 45378; principal; 2024-07-25 13:30)
DX: K92.1 Melena (principal); D12.8 Benign neoplasm of rectum; K63.5 Polyp of colon; K64.8 Other hemorrhoids; K29.50 Unspecified chronic gastritis without bleeding; K21.00 Gastro-esophageal reflux disease with esophagitis, without bleeding; E66.9 Obesity, unspecified; Z68.32 Body mass index [BMI] 32.0-32.9, adult
CPT/HCPCS: 45380; 45385; 43239; 88305; J2003; J2704; J7120